=== PATIENT | male | born 2000 | race Caucasian/White ===

== ENCOUNTER 2021-02-11 19:09 | Emergency (ER) | payer BC ==
[~2021-02-11] VITALS: Ht 182.9 cm; Wt 127.0 kg
[2021-02-11] MEDS ORDERED: CEPH500 PO (20:06)
== END 2021-02-11 20:20 | disposition home or self-care (01) ==
LOC: ER 19:09
DX: S80.851A Superficial foreign body, right lower leg, initial encounter (principal); W45.8XXA Other foreign body or object entering through skin, initial encounter
CPT/HCPCS: 99282; A9270